=== PATIENT | male | born 1980 | race Caucasian/White ===

== ENCOUNTER 2018-09-18 20:08 | Emergency (ER) | payer OTHER ==
[2018-09-18] MEDS ORDERED: EPINEPHRINE INJ/PF 1 MG/1 ML AMPULE IM ONE (20:20)
[2018-09-18] MEDS ORDERED: FAMOTIDINE INJ/PF 20 MG/2 ML SDV IV ONE (20:20)
[2018-09-18] MEDS ORDERED: METHYLPREDNISOLONE INJ 125 MG/2 ML SDV IV ONE (20:20)
[2018-09-18] MEDS ORDERED: NORMAL SALINE 1000 ML 1,000 ML IV ONE (20:21)
--- NOTE | 2018-09-18 20:22 | ER Document Report ---
ED Medical Screen (RME) - General Chief Complaint: Bee Sting Stated Complaint: ALLERGIC REACTION/BEE STING Time Seen by Provider: 09/18/18 20:19 Mode of Arrival: Ambulatory Information source: Patient Notes: Patient presents with complaint of a bee sting to the hand that occurred an hour prior to arrival. Patient did take 50 mg of Benadryl at home. Patient states that he has had allergic reactions to bee stings in the past that required epinephrine. Patient does not have an EpiPen at home. Patient states that his throat feels funny. Respirations unlabored. No angioedema. Patient with significant swelling to right hand. I have greeted and performed a rapid initial assessment of this patient. A comprehensive ED assessment and evaluation of the patient, analysis of test results and completion of the medical decision making process will be conducted by additional ED providers. TRAVEL OUTSIDE OF THE [place] IN LAST 30 DAYS: No Physical Exam - General Notes: Right hand swelling, no angioedema, no obvious potential airway compromise
--- NOTE | 2018-09-18 22:37 | ER Document Report ---
ED Allergic Reaction - General Chief Complaint: Bee Sting Stated Complaint: ALLERGIC REACTION/BEE STING Time Seen by Provider: 09/18/18 20:19 Mode of Arrival: Ambulatory Notes: Patient is a 38-year-old male that comes to the emergency department for chief complaint of allergic reaction from a bee sting. He was stung on the top of his right hand, this happened just prior to arrival, his hand became very swollen to the point that he could not close his hand, he also started to get a tightness sensation in his throat. He took 50 mg of Benadryl but he did not take his epinephrine pen at home. He denies difficulty breathing, inability to swallow, or rash over his body. 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 In triage she received epinephrine pen, Pepcid, Solu-Medrol, IV fluids. TRAVEL OUTSIDE OF THE [place] IN LAST 30 DAYS: No - Related Data Allergies/Adverse Reactions: bee sting Adverse Reaction (Uncoded 09/18/18 20:30) Past Medical History - General Information source: Patient - Social History Smoking Status: Current Every Day Smoker Chew tobacco use (# tins/day): No Frequency of alcohol use: None Drug Abuse: None Lives with: Family Family History: Reviewed & Not Pertinent Patient has suicidal ideation: No Patient has homicidal ideation: No Renal/ Medical History: Denies: Hx Peritoneal Dialysis - Immunizations Immunizations up to date: Yes Hx Diphtheria, Pertussis, Tetanus Vaccination: Yes Review of Systems - Review of Systems Constitutional: No symptoms reported EENT: See HPI Cardiovascular: No symptoms reported Respiratory: No symptoms reported Gastrointestinal: No symptoms reported Genitourinary: No symptoms reported Male Genitourinary: No symptoms reported Musculoskeletal: See HPI Skin: See HPI Hematologic/Lymphatic: No symptoms reported Neurological/Psychological: No symptoms reported Physical Exam - Vital signs Vitals: Temp Pulse Resp BP 98.4 F 78 14 148/74 H 09/18/18 22:48 09/18/18 22:48 09/18/18 22:48 09/18/18 22:48 - Notes Notes: GENERAL: Alert, interacts well. No acute distress. HEAD: Normocephalic, atraumatic. EYES: Pupils equal, round, and reactive to light. Extraocular movements intact. ENT: Oral mucosa moist, tongue midline. Oropharynx unremarkable. Airway patent. Nares patent, no nasal septal hematoma, TM's intact. NECK: Full range of motion. Supple. Trachea midline. LUNGS: Clear to auscultation bilaterally, no wheezes, rales, or rhonchi. No respiratory distress. HEART: Regular rate and rhythm. No murmur ABDOMEN: Soft, non-tender. Non-distended. Bowel sounds present in all 4 quadrants. GENITOURINARY: Deferred EXTREMITIES: Right hand with soft tissue swelling mainly over the dorsal aspect which is comparatively significantly different from the left hand. There is also a tiny area consistent with a bee sting over the dorsal hand. Capillary refill and sensation of the fingers is normal, range of motion of the hand and wrist are normal, normal upper extremity exam otherwise. BACK: no cervical, thoracic, lumbar midline tenderness. No saddle anesthesia, normal distal neurovascular exam. Moves all extremities in full range of motion. NEUROLOGICAL: Alert and oriented x3. Normal speech. Cranial nerves II through XII grossly intact. PSYCH: Normal affect, normal mood. SKIN: Warm, dry, normal turgor. No rashes or lesions noted. Course - Re-evaluation Re-evalutation: Patient has already been treated. His hand is much improved, it is still significantly swollen compared to the left but he can now closed the hand without any difficulty. He denies any throat sensation now. Oropharyngeal examination is normal. He has a clear lungs, no rash over the body. Patient has been monitored over 2 hours since treatment and has only had improvement with no new or worsening symptoms. He is requesting to leave. He already has an EpiPen at home and he was urged to take it if his symptoms worsen and return the emergency department. Return precautions discussed in detail. Patient states understanding and agreement. Discussed steroid versus antihistamine treatments, he prefers antihistamine treatment so he was provided with this. - Vital Signs Vital signs: Temp Pulse Resp BP Pulse Ox 98.4 F 78 14 148/74 H 09/18/18 22:48 09/18/18 22:48 09/18/18 22:48 09/18/18 22:48 Discharge - Discharge Clinical Impression: Hymenoptera sting Qualifiers: Encounter type: initial encounter Injury intent: accidental or unintentional Qualified Code(s): T63.481A - Toxic effect of venom of other arthropod, accidental (unintentional), initial encounter Allergic reaction Qualifiers: Encounter type: initial encounter Qualified Code(s): T78.40XA - Allergy, unspecified, initial encounter Condition: Stable Disposition: HOME, SELF-CARE Additional Instructions: Your evaluation is consistent with allergic reaction caused by the bee sting. Take the antihistamines as prescribed, Zyrtec three times a day and Pepcid twice a day for 1 week. Follow-up with primary care. In the event of severe allergic reaction (swelling, swelling of the face, lips, tongue, difficulty breathing with swallowing, etc.), take your EpiPen and return immediately to the emergency department. Return for any other concerning or worsening symptoms. Prescriptions: Cetirizine HCl [Zyrtec 10 mg Tablet] 1 tab PO TID 7 Days #30 tablet Famotidine [Pepcid 20 mg Tablet] 20 mg PO BID 7 Days #14 tablet
[2018-09-18 22:55] VITALS: BP 148/74
== END 2018-09-18 22:48 | disposition home or self-care (01) ==
LOC: ER 20:08
DX: T63.441A Toxic effect of venom of bees, accidental (unintentional), initial encounter (principal); T78.40XA Allergy, unspecified, initial encounter; X58.XXXA Exposure to other specified factors, initial encounter; F17.200 Nicotine dependence, unspecified, uncomplicated
CPT/HCPCS: 99282; 96372; 96361; 96374; 96375; J0171; J2930; J7030; S0028